=== PATIENT | male | born 1995 | race Caucasian/White ===

== ENCOUNTER 2022-03-29 10:26 | Emergency (ER) | payer OTHER, SELFPAY ==
[2022-03-29 10:37] VITALS: BP 145/92; PULSE 62; RESP 16; TEMP 36.3; O2SAT 98
--- NOTE | 2022-03-29 10:43 | ED.EYEPROB ---
HPI - Eye Problem General Chief complaint: Eye Problems Stated complaint: debris in right eye Time Seen by Provider: 03/29/22 10:43 Source: patient Mode of arrival: ambulatory Limitations: no limitations History of Present Illness HPI Narrative: 27-year-old male presents with pain, redness to right eye. States yesterday while cutting wood he sneezed and wood dust flew into his eye. Was not wearing protective eyewear at that time. States that he washed it out and felt better. Woke up this morning with pain and redness. Left his contact out due to pain. States still feels like something is in his eye. All systems reviewed and negative except as noted above. Related Data Allergies Allergy/AdvReac Type Severity Reaction Status Date / Time No Known Allergies Allergy Verified 03/29/22 10:36 Review of Systems Review of Systems: CONSTITUTIONAL: Denies fever, chills, or sweats. EYES: Reports redness, pain right eye. ENT: Denies rhinorrhea, congestion, sore throat, or otalgia. CARDIOVASCULAR: Denies chest pain, palpitations, or edema. RESPIRATORY: Denies cough or dyspnea. GASTROINTESTINAL: Denies abdominal pain, nausea, vomiting, or diarrhea. GENITOURINARY: Denies dysuria or hematuria. SKIN: Denies rash or itching. MUSCULOSKELETAL: Denies back pain, joint pain, or myalgia. NEUROLOGIC: Denies headache, numbness, or weakness. PSYCHIATRIC: Denies anxiety or depression. All other systems reviewed are negative, except as documented in HPI. PMFSH Comments At time of signature, agree with nursing past medical, surgical, social and family history. There is no relevant family history pertinent to the presenting complaint. Exam Narrative: GENERAL: This is a well-nourished, well-developed patient, in no apparent distress. HEAD: normocephalic, atraumatic. EYES: PERRL. Sclera and conjunctiva erythematous. Clear drainage. EARS: External ears normal NOSE: External nose normal NECK: Neck supple, non-tender without lymphadenopathy, masses or thyromegaly. CARDIOVASCULAR: Regular rate and rhythm without murmurs, gallops, or rubs. RESPIRATORY: Clear to auscultation. Breath sounds equal bilaterally. No wheezes, rales, or rhonchi. SKIN: warm, Dry, intact with no suspicious lesions or rash, good texture and turgor. NEURO: awake, alert, and oriented to person, place and time. There were no obvious focal neurologic abnormalities. EXTREMITIES: No joint tenderness, effusion, or edema noted. Course Course Level of Care: Express Care Visit Vital Signs Vital signs: Vital Signs Temperature 36.3 C L 03/29/22 10:37 Pulse Rate 62 03/29/22 10:37 Respiratory Rate 16 03/29/22 10:37 Blood Pressure 145/92 H 03/29/22 10:37 Pulse Oximetry 98 03/29/22 10:37 Oxygen Delivery Room Air 03/29/22 10:37 Temperature 36.3 C L 03/29/22 10:37 Pulse Rate 62 03/29/22 10:37 Respiratory Rate 16 03/29/22 10:37 Blood Pressure 145/92 H 03/29/22 10:37 Pulse Oximetry 98 03/29/22 10:37 Oxygen Delivery Room Air 03/29/22 10:37 Reviewed Procedures Other Procedure Procedure 1: Other Procedure: 1 drop tetracaine right eye, 1 fluorescein strip. Mild corneal abrasion noted under Wood's lamp. MDM - Eye Problem MDM Narrative Medical decision making narrative: Patient is aware of diagnosis, understands and agrees to treatment plan. Anticipatory guidance given. Patient agrees to follow-up as directed and is aware of reasons to seek care at the emergency department. Portions of this record may have been created with voice recognition software Differential Diagnosis Differential diagnosis: Likely corneal abrasion, conjunctivitis, subconjunctival hemorrhage and corneal ulcer Discharge Plan Discharge Clinical Impression: Corneal abrasion, right Patient Disposition: Home, Self-Care Condition: Stable Instructions: Antibiotic Form, Erythromycin (Into the eye), Corneal Abrasion (ED) Additional Instructions: Take
== END 2022-03-29 11:06 | disposition home or self-care (01) ==
PROVIDERS: Emergency Provider Nurse Practitioner Family
DX: S05.01XA Injury of conjunctiva and corneal abrasion without foreign body, right eye, initial encounter (principal); X58.XXXA Exposure to other specified factors, initial encounter
CPT/HCPCS: 99213; A9270; G0463